=== PATIENT | female | born 1990 ===

== ENCOUNTER 2016-11-30 13:00 | Emergency (ER) | payer OTHER, MEDICAID ==
[2016-11-30 13:03] VITALS: BMI 33.5
[2016-11-30 13:10] VITALS: BP 115/77; PULSE 99; RESP 19; TEMP 98.2; O2SAT 98
--- NOTE | 2016-11-30 14:55 | RAD ---
PROCEDURE: Right Wrist Radiographs. HISTORY: wrist injury COMPARISON: None. FINDINGS: BONES: Normal. No fracture. JOINTS: Normal. No dislocation. SOFT TISSUES: Normal. OTHER FINDINGS: None. IMPRESSION: Normal right wrist radiographs.
--- NOTE | 2016-11-30 14:56 | ED PDOC ---
Arrival/HPI - General Chief Complaint: Finger,Hand,&Wrist Time Seen by Provider: 11/30/16 13:31 Historian: Patient - History of Present Illness Narrative History of Present Illness (Text): 11/30/16 15:23 26yr old female presents today with a 3 week history of right thumb and wrist pain. pt states 3 weeks ago she was trying to put up a headrest and sustained thumb dislocation per patient. pt states her friend put the thumb back into place. pt states she then went to the ER and had xrays which were normal and was told to f/u with hand specialist. pt states she never followed up and now presents with continued pain to the right thumb. pt states occasionally the thumb will lock in place. denies numbness, weakness, tingling in the extremity. no other complaints. Time/Duration: Other (3 weeks) Symptom Onset: Sudden Symptom Course: Unchanged Quality: Aching Severity Level: 3 Past Medical History - Provider Review Nursing Documentation Reviewed: Yes - Travel History Have you recently traveled outside [place] w/in the past 3 mons?: No - Infectious Disease Hx of Infectious Diseases: None - Tetanus Immunization Tetanus Immunization: Unknown - Past Medical History Past Medical History: No Previous - Psychiatric Hx Depression: No Hx Emotional Abuse: No Hx Physical Abuse: No Hx Substance Use: No - Surgical History Hx Section: Yes (x2) - Anesthesia Hx Anesthesia: Yes Hx Anesthesia Reactions: No Hx Malignant Hyperthermia: No - Suicidal Assessment Feels Threatened In Home Enviroment: No Family/Social History - Physician Review Nursing Documentation Reviewed: Yes Family/Social History: Unknown Family HX Smoking Status: Never Smoked Hx Alcohol Use: No Hx Substance Use: No Hx Substance Use Treatment: No Allergies/Home Meds Allergies/Adverse Reactions: Allergies levofloxacin [From Levaquin] Allergy (Verified 11/30/16 13:03) RASH metronidazole [From Flagyl] Allergy (Verified 11/30/16 13:03) RASH Penicillins Allergy (Verified 11/30/16 13:03) ANGIOEDEMA Home Medications: Home Meds Medication Instructions Recorded Confirmed Amitriptyline [Elavil] 10 mg PO DAILY 11/30/16 11/30/16 Review of Systems - Review of Systems Constitutional: absent: Fatigue, Fevers Respiratory: absent: SOB, Cough Cardiovascular: absent: Chest Pain, Palpitations Gastrointestinal: absent: Abdominal Pain, Vomiting Musculoskeletal: Arthralgias. absent: Back Pain Skin: absent: Rash, Pruritis Neurological: absent: Headache, Dizziness Physical Exam Vital Signs Reviewed: Yes Vital Signs Temp Pulse Resp BP Pulse Ox 11/30/16 13:09 98.2 F 99 H 19 115/77 98 Temperature: Afebrile Blood Pressure: Normal Pulse: Regular Respiratory Rate: Normal Appearance: Positive for: Well-Appearing, Non-Toxic, Comfortable Pain Distress: None Mental Status: Positive for: Alert and Oriented X 3 - Systems Exam Head: Present: Atraumatic Respiratory/Chest: Present: Clear to Auscultation Cardiovascular: Present: Regular Rate and Rhythm Upper Extremity: Present: Normal ROM, NORMAL PULSES, Tenderness (right hand; + ttp over thumb, + minimal edema, no erythema; no ecchymosis; full rom of thumb with pain; no snuff box tenderness. sensation and distal pulses intact. cap refill <2. ), Neurovascularly Intact, Capillary Refill < 2s. No: Swelling, Erythema, Deformity Neurological: Present: GCS=15 Skin: Present: Warm, Dry, Normal Color. No: Rashes Psychiatric: Present: Alert, Oriented x 3 Medical Decision Making ED Course and Treatment: 11/30/16 15:27 Patient nontoxic well-appearing in no distress with stable vital signs X-rays of the right thumb: No fracture X-rays of the right wrist: No fracture motrin po Patient placed inVelcro thumb spica splint I discussed all results with patient advised to followup with the orthopedist for the next 2 days. Return if symptoms worsen persist or new symptoms develop Patient verbalizes understanding of discharge instructions and need for immediate followup. Impression:Thumb pain, hand pain Motrin every 6 hours as needed for pain Followup with the orthopedist within the next 2 days Followup with primary care physician within the next 2 days Return if any other concerning symptoms develop - RAD Interpretation Radiology Orders: 11/30/16 13:31 HAND RIGHT THUMB [RAD] Stat 11/30/16 13:38 WRIST, RIGHT 3 VIEWS [RAD] Stat - Medication Orders Current Medication Orders: Discontinued Medications Ketorolac Tromethamine (Toradol) 60 mg IM STAT STA Stop: 11/30/16 13:39 Last Admin: 11/30/16 13:44 Dose: 60 mg Disposition/Present on Arrival - Present on Arrival Any Indicators Present on Arrival: No History of DVT/PE: No History of Uncontrolled Diabetes: No Urinary Catheter: No History of Decub. Ulcer: No History Surgical Site Infection Following: None - Disposition Have Diagnosis and Disposition been Completed?: Yes Diagnosis: Thumb pain, Hand pain Disposition: HOME/ ROUTINE Disposition Time: 14:20 Patient Plan: Discharge Condition: GOOD Discharge Instructions (ExitCare): Arthralgia (ED) Additional Instructions: Motrin every 6 hours as needed for pain Rest, ice, compression, elevation Followup with the orthopedist within the next 2 days Followup with primary care physician within the next 2 days Return if any other concerning symptoms develop Prescriptions: Ibuprofen [Motrin] 600 mg PO Q6H PRN #20 tab PRN Reason: pain/fever reduction Referrals: Tip Alvarez III, MD [Medical Doctor] - Follow up with primary Gilbert Hernandez MD [Staff Provider] - Follow up with primary [facility] [Outside] - Follow up with primary Forms: SCHOOL NOTE, WORK NOTE
--- NOTE | 2016-11-30 14:57 | RAD ---
PROCEDURE: Right Hand Radiographs. HISTORY: thumb injury 3 weeks ago hx of dislocation COMPARISON: None. FINDINGS: BONES: Normal. No fracture. JOINTS: Normal. No osteoarthritic changes. SOFT TISSUES: Normal. OTHER FINDINGS: None. IMPRESSION: Normal right hand radiographs.
== END 2016-11-30 15:24 | disposition home or self-care (01) ==
LOC: ED 13:00
DX: M79.644 Pain in right finger(s) (principal); M79.641 Pain in right hand
CPT/HCPCS: 29130; 73110; 73140; 96372; 99284; J1885